=== PATIENT | male | born 1985 | race Caucasian/White ===

== ENCOUNTER 2018-08-31 18:44 | Emergency (ER) | payer BC ==
[2018-08-31] MEDS ORDERED: Lidocaine 2% Viscous Solution 15 ML Cup PO ONE (19:02)
[2018-08-31] MEDS ORDERED: Benzocaine 20% Topical Spray UD MUCMEM ONE (19:02)
--- NOTE | 2018-08-31 19:11 | EDM.PDOC ---
<Alice Rodriguez - Last Filed: 08/31/18 19:11> ED HPI GENERAL MEDICAL PROBLEM - General Chief Complaint: General Stated Complaint: ABSESS TOOTH Time Seen by Provider: 08/31/18 18:48 - History of Present Illness INITIAL COMMENTS - FREE TEXT/NARRATIVE: HISTORY AND PHYSICAL: History of present illness: Patient is a 33-year-old male who presents for an abscessed tooth. Patient reports that Monday morning his tooth began to start feeling painful and by Monday the abscess had formed. He reports pain this morning so he took 800mg ibuprofen with moderate relief. Has not taken any medication since. He does report some pus draining from the abscess when he pushes on it. He has not scheduled a dentist appointment but reports that he has had numerous dental abscesses in the past that have been cleared with antibiotics. Reports decreased intake and is able to drink water. Patient denies fever, chills, chest pain, shortness of breath, or cough. Denies headache, neck stiff ness, change in vision, syncope, or near syncope. Denies nausea, vomiting, abdominal pain, diarrhea, constipation, or dysuria. Has not noted any blood in urine or stool. Review of systems: As per history of present illness and below otherwise all systems reviewed and negative. Past medical history: As per history of present illness and as reviewed below otherwise noncontributory. Surgical history: As per history of present illness and as reviewed below otherwise noncontributory. Social history: See social history for further information Family history: As per history of present illness and as reviewed below otherwise noncontributory. Physical exam: General: Patient is alert, oriented, and in no acute distress. Patient sitting comfortably on exam table. HEENT: Atraumatic, normocephalic, pupils equal and reactive bilaterally, negative for conjunctival pallor or scleral icterus, mucous membranes moist, TMs normal bilaterally, throat clear, neck supple, nontender, trachea midline. No drooling or trismus noted. No meningeal signs. No hot potato voice noted. Overall poor dentition. Small abscess noted to the left lower second molar, scant amount of puss noted. Lungs: Clear to auscultation, breath sounds equal bilaterally, chest nontender. Heart: S1S2, regular rate and rhythm without overt murmur Abdomen: Soft, nondistended, nontender. Negative for masses or hepatosplenomegaly. Negative for costovertebral tenderness. Pelvis: Stable nontender. Genitourinary: Deferred. Rectal: Deferred. Skin: Intact, warm, dry. No lesions or rashes noted. Extremities: Atraumatic, negative for cords or calf pain. Neurovascular unremarkable. Neuro: Awake, alert, oriented. Cranial nerves II through XII unremarkable. Cerebellum unremarkable. Motor and sensory unremarkable throughout. Exam nonfocal. Notes: Discussed the importance of following up with PCP and dentist. Voices understanding and is agreeable to plan of care. Denies any further questions or concerns at this time. Diagnostics: None. Therapeutics: Dental Balls Prescription: Amoxicillin Impression: Dental abscess Plan: 1. Take Tylenol and ibuprofen as directed for pain. Take medication as directed. 2. Follow up with primary care and dentist as discussed. Return to ED as needed and as discussed. Definitive disposition and diagnosis as appropriate pending reevaluation and review of above. - Related Data Allergies Allergy/AdvReac Type Severity Reaction Status Date / Time No Known Allergies Allergy Verified 08/31/18 18:52 Home Meds: Home Meds Dextroamphetamine/Amphetamine [Adderall 20 mg Tablet] 20 mg PO DAILY 08/31/18 [ History] Escitalopram [Lexapro] 10 mg PO DAILY 08/31/18 [History] ED ROS GENERAL - Review of Systems Review Of Systems: ROS reveals no pertinent complaints other than HPI. ED EXAM, GENERAL - Physical Exam Exam: See Below (see dictation) Course - Vital Signs Last Recorded V/S: Last Vital Signs Temp 36.0 C 08/31/18 18:52 Pulse 88 08/31/18 18:52 Resp 15 08/31/18 18:52 BP 131/87 08/31/18 18:52 Pulse Ox 96 08/31/18 18:52 - Orders/Labs/Meds Meds: Medications Discontinued Medications Generic Name Dose Route Start Last Admin Trade Name Crowq PRN Reason Stop Dose Admin Benzocaine 2 each 08/31/18 19:02 08/31/18 19:20 Hurricaine One 20% MUCMEM 08/31/18 19:03 2 each ONETIME ONE Administration Lidocaine HCl 15 ml 08/31/18 19:02 08/31/18 19:20 Xylocaine 2% Viscous PO 08/31/18 19:03 15 ml ONETIME ONE Administration Departure - Departure Time of Disposition: 19:11 Disposition: Home, Self-Care 01 Clinical Impression: Dental abscess - Discharge Information Referrals: PCP,None [Primary Care Provider] - Forms: ED Department Discharge Additional Instructions: The following information is given to patients seen in the emergency department who are being discharged to home. This information is to outline your options for follow-up care. We provide all patients seen in our emergency department with a follow-up referral. The need for follow-up, as well as the timing and circumstances, are variable depending upon the specifics of your emergency department visit. If you don't have a primary care physician on staff, we will provide you with a referral. We always advise you to contact your personal physician following an emergency department visit to inform them of the circumstance of the visit and for follow-up with them and/or the need for any referrals to a consulting specialist. The emergency department will also refer you to a specialist when appropriate. This referral assures that you have the opportunity for follow-up care with a specialist. All of these measure are taken in an effort to provide you with optimal care, which includes your follow-up. Under all circumstances we always encourage you to contact your private physician who remains a resource for coordinating your care. When calling for follow-up care, please make the office aware that this follow-up is from your recent emergency room visit. If for any reason you are refused follow-up, please contact the [facility] Emergency Department at and asked to speak to the emergency department charge nurse. [facility] [address] [place] [address] [id number] [address] [id number] 1. Take Tylenol and ibuprofen as directed for pain. Take medication as directed. 2. Follow up with primary care and dentist as discussed. Return to ED as needed and as discussed. <Belén Weaver - Last Filed: 08/31/18 19:25> ED HPI GENERAL MEDICAL PROBLEM - History of Present Illness INITIAL COMMENTS - FREE TEXT/NARRATIVE: I have personally seen the patient and agree with the above note. Patient is agreeable to plan of care as outlined above without questions or concerns at this time.
== END 2018-08-31 19:34 | disposition home or self-care (01) ==
LOC: MW.ED 18:44
DX: K04.7 Periapical abscess without sinus (principal); Z79.899 Other long term (current) drug therapy
CPT/HCPCS: 99282; A9270; 99283

== ENCOUNTER 2018-09-29 20:31 | Emergency (ER) | payer BC ==
--- NOTE | 2018-09-29 20:51 | EDM.PDOC ---
ED HPI GENERAL MEDICAL PROBLEM - General Chief Complaint: Chest Pain Stated Complaint: PT HAS CHEST PAINS Time Seen by Provider: 09/29/18 20:41 - History of Present Illness INITIAL COMMENTS - FREE TEXT/NARRATIVE: HISTORY AND PHYSICAL: History of present illness: Patient is a 33-year-old white male with history of anxiety who presents with concern of chest pain 5 days this is without associated shortness of breath palpitations nausea vomiting or diaphoresis. He denies trauma Review of systems: As per history of present illness and below otherwise all systems reviewed and negative. Past medical history: As per history of present illness and as reviewed below otherwise noncontributory. Surgical history: As per history of present illness and as reviewed below otherwise noncontributory. Social history: No reported history of drug or alcohol abuse. Family history: As per history of present illness and as reviewed below otherwise noncontributory. Physical exam: HEENT: Atraumatic, normocephalic, pupils reactive, negative for conjunctival pallor or scleral icterus, mucous membranes moist, throat clear, neck supple, nontender, trachea midline. Lungs: Clear to auscultation, breath sounds equal bilaterally, chest nontender. Heart: S1S2, regular, negative for clicks, rubs, or JVD. Abdomen: Soft, nondistended, nontender. Negative for masses or hepatosplenomegaly. Negative for costovertebral tenderness. Pelvis: Stable nontender. Genitourinary: Deferred. Rectal: Deferred. Extremities: Atraumatic, negative for cords or calf pain. Neurovascular unremarkable. Neuro: Awake, alert, oriented. Cranial nerves II through XII unremarkable. Cerebellum unremarkable. Motor and sensory unremarkable throughout. Exam nonfocal. Diagnostics: Chest x-ray EKG CBC CMP troponin PT/INR Therapeutics: None Impression: #1 atypical chest pain #2 anxiety Definitive disposition and diagnosis as appropriate pending reevaluation and review of above. Chest Pain Score (Numeric/FACES): 0 - Related Data Allergies Allergy/AdvReac Type Severity Reaction Status Date / Time No Known Allergies Allergy Verified 09/29/18 20:41 Home Meds: Home Meds Dextroamphetamine/Amphetamine [Adderall 20 mg Tablet] 20 mg PO DAILY 08/31/18 [ History] Escitalopram [Lexapro] 10 mg PO DAILY 08/31/18 [History] Past Medical History Cardiovascular History: Reports: [place] Psychiatric History: Reports: ADHD, Anxiety, Depression - Infectious Disease History Infectious Disease History: Reports: None - Past Surgical History Male Surgical History: Reports: Vasectomy Social & Family History - Family History Family Medical History: Noncontributory - Tobacco Use Smoking Status *Q: Current Every Day Smoker Years of Tobacco use: 13 Packs/Tins Daily: 1 - Recreational Drug Use Recreational Drug Use: No ED ROS GENERAL - Review of Systems Review Of Systems: ROS reveals no pertinent complaints other than HPI. ED EXAM, GENERAL - Physical Exam Exam: See Below (See dictation) Course - Vital Signs Last Recorded V/S: Last Vital Signs Temp Pulse 80 09/29/18 20:38 Resp 18 09/29/18 20:38 BP Pulse Ox 97 09/29/18 20:38 - Orders/Labs/Meds Orders: Active Orders 24 hr Category Date Time Status EKG Documentation Completion [RC] STAT Care 09/29/18 20:33 Active Chest 2V [CR] Stat Exams 09/29/18 20:33 Ordered COMPREHENSIVE METABOLIC PN,CMP [CHEM] Stat Lab 09/29/18 20:40 Received INR,PT,PROTHROMBIN TIME [COAG] Stat Lab 09/29/18 20:40 Received TROPONIN I [CHEM] Stat Lab 09/29/18 20:40 Received Labs: Laboratory Tests 09/29/18 Range/Units 20:40 WBC 8.26 (4.0-11.0) K/uL RBC 4.90 (4.50-5.90) M/uL Hgb 14.6 (13.0-17.0) g/dL Hct 42.6 (38.0-50.0) % MCV 86.9 (80.0-98.0) fL MCH 29.8 (27.0-32.0) pg MCHC 34.3 (31.0-37.0) g/dL RDW Std Deviation 41.6 (28.0-62.0) fl RDW Coeff of Elena 13 (11.0-15.0) % Plt Count 246 (150-400) K/uL MPV 11.60 (7.40-12.00) fL Neut % (Auto) 69.9 (48.0-80.0) % Lymph % (Auto) 22.3 (16.0-40.0) % Gonzales % (Auto) 7.1 (0.0-15.0) % Eos % (Auto) 0.5 (0.0-7.0) % Baso % (Auto) 0.2 (0.0-1.5) % Neut # (Auto) 5.8 H (1.4-5.7) K/uL Lymph # (Auto) 1.8 (0.6-2.4) K/uL Gonzales # (Auto) 0.6 (0.0-0.8) K/uL Eos # (Auto) 0.0 (0.0-0.7) K/uL Baso # (Auto) 0.0 (0.0-0.1) K/uL Nucleated RBC % 0.0 /100WBC Nucleated RBCs # 0 K/uL Departure - Departure Time of Disposition: 21:07 Disposition: Home, Self-Care 01 Condition: Good Clinical Impression: Atypical chest pain, Anxiety - Discharge Information Referrals: PCP,None [Primary Care Provider] - Forms: ED Department Discharge Additional Instructions: The following information is given to patients seen in the emergency department who are being discharged to home. This information is to outline your options for follow-up care. We provide all patients seen in our emergency department with a follow-up referral. The need for follow-up, as well as the timing and circumstances, are variable depending upon the specifics of your emergency department visit. If you don't have a primary care physician on staff, we will provide you with a referral. We always advise you to contact your personal physician following an emergency department visit to inform them of the circumstance of the visit and for follow-up with them and/or the need for any referrals to a consulting specialist. The emergency department will also refer you to a specialist when appropriate. This referral assures that you have the opportunity for followup care with a specialist. All of these measure are taken in an effort to provide you with optimal care, which includes your followup. Under all circumstances we always encourage you to contact your private physician who remains a resource for coordinating your care. When calling for followup care, please make the office aware that this follow-up is from your recent emergency room visit. If for any reason you are refused follow-up, please contact the [facility] emergency department at and asked to speak to the emergency department charge nurse. Follow-up primary medical doctor as discussed return as needed as discussed - My Orders Last 24 Hours: My Active Orders 09/29/18 20:40 COMPREHENSIVE METABOLIC PN,CMP [CHEM] Stat INR,PT,PROTHROMBIN TIME [COAG] Stat TROPONIN I [CHEM] Stat - Assessment/Plan Last 24 Hours: My Active Orders 09/29/18 20:40 COMPREHENSIVE METABOLIC PN,CMP [CHEM] Stat INR,PT,PROTHROMBIN TIME [COAG] Stat TROPONIN I [CHEM] Stat
[2018-09-29 21:26] LABS: CHLORIDE,CL 106 mmol/L (98-107); SODIUM,NA 143 mmol/L (136-148)
--- NOTE | 2018-09-29 22:10 | CR ---
INDICATION: Pain. Shortness of breath. TECHNIQUE: PA and lateral chest x-ray. FINDINGS: Heart size normal. Linear density along the lower heart could be related to platelike atelectasis or scarring in 1 of the lungs. Lungs otherwise clear without infiltrate or consolidation. Chest otherwise negative without acute disease. Dictated by Dayo Robins MD @ Sep 29 2018 10:08PM Signed by Dr. Dayo Robins @ Sep 29 2018 10:09PM
== END 2018-09-29 22:30 | disposition home or self-care (01) ==
LOC: MW.ED 20:31
DX: R07.89 Other chest pain (principal); F41.9 Anxiety disorder, unspecified; F32.9 Major depressive disorder, single episode, unspecified; F17.210 Nicotine dependence, cigarettes, uncomplicated; Z79.899 Other long term (current) drug therapy
CPT/HCPCS: 36415; 71046; 71046-26; 80053; 84484; 85025; 85610; 93005; 99285-25